=== PATIENT | female | born 1950 | race Caucasian/White ===

== ENCOUNTER 2023-09-10 18:44 | Inpatient (IN) | payer MEDICARE, BC ==
[~2023-09-10] VITALS: Ht 162.6 cm; Wt 39.9 kg
[2023-09-10] MEDS ORDERED: ACETAMINOPHEN 650 MG/SUPP.RECT RC ONE (19:25)
[2023-09-10] MEDS: IV NS 0.9% 1,000 ML BAG IV ONE (19:30)
[2023-09-10] MEDS: ACETAMINOPHEN 650 MG/SUPP.RECT RC ONE (19:31)
[2023-09-10 19:52] LABS: BASOPHILS # (AUTO) 0.1 K/uL (0.0-0.2); BASOPHILS % (AUTO) 0.1 % (0.0-2.0); HEMATOCRIT 36 % (33-45); LYMPHOCYTES # (AUTO) 1.5 K/uL (0.8-4.8); LYMPHOCYTES % (AUTO) 3.3 % (20.0-44.0); MEAN CORPUSCULAR HEMOGLOBIN 27 PG (26.0-33.0); MEAN CORPUSCULAR HGB CONC 31 g/dl (31.0-36.0); MEAN CORPUSCULAR VOLUME 88 fL (82-100); MONOCYTES % (AUTO) 2.1 % (2.0-12.0); NEUTROPHILS # (AUTO) 43.9 K/uL (1.8-8.9); NEUTROPHILS % (AUTO) 94.5 % (43.0-81.0); PLATELET COUNT (AUTO) 692 K/uL (150-450); RED BLOOD CELL COUNT(AUTO) 4.12 MIL/uL (4.0-5.2); RED CELL DISTRIBUTION WIDTH 16.9 % (11.5-15.0)
[2023-09-10 19:55] LABS: WHITE BLOOD COUNT (AUTO) 46.5 K/uL (4.3-11.0)
[2023-09-10 19:57] LABS: INR 1.09 (0.91-1.10); PARTIAL THROMBOPLASTIN TIME 24.1 SEC (24.3-34.3); PROTHROMBIN TIME 11.2 SECS (9.2-11.1)
[2023-09-10 20:00] LABS: ALANINE AMINOTRANSFERASE 14 U/L (12-78); ALBUMIN 2.4 g/dL (3.4-5.0); ALKALINE PHOSPHATASE 107 U/L (46-116); ASPARTATE AMINOTRANSFERASE 12 U/L (15-37); BILIRUBIN,DIRECT 0.1 mg/dL (0.0-0.2); BILIRUBIN,TOTAL 0.3 mg/dL (0.2-1.0); CALCIUM, SERUM 10.1 mg/dL (8.5-10.1); CARBON DIOXIDE 16 mmol/L (21-32); CHLORIDE 115 mmol/L (98-107); CREATININE 2.6 mg/dL (0.6-1.3); GLUCOSE 397 mg/dL (74-106); POTASSIUM 4.5 mmol/L (3.5-5.1); SODIUM SERUM 150 mmol/L (136-145); TOTAL PROTEIN, SERUM 9.2 g/dL (6.4-8.2)
[2023-09-10 20:07] LABS: UREA NITROGEN, BLOOD 102 mg/dL (7-18)
[2023-09-10 20:23] LABS: LACTIC ACID 3.3 mmol/L (0.4-2.0)
[2023-09-10] MEDS ORDERED: PIPERACI/TAZO 3.375GM/D5W 50ML PB IV ONE (21:26)
[2023-09-10] MEDS: PIPERACILLIN /TAZOBACTAM 3.375 G in IV D5W 50 ML IV ONE (21:30)
[2023-09-10 21:51] LABS: BILIRUBIN,URINE Negative (NEGATIVE); BLOOD, URINE Moderate Ery/uL (NEGATIVE); COLOR,URINE YELLOW (YELLOW); KETONES,URINE Negative (NEGATIVE); LEUKOCYTE ESTERASE ,URINE Large (NEGATIVE); NITRITE, URINE Negative (NEGATIVE); PROTEIN,URINE 100 mg/dl (NEGATIVE); UGLUCOSE 250 MG/DL mg/dL (NEGATIVE); UROBILINOGEN,URINE 0.2 EU/dL (0.2)
[2023-09-10 21:52] LABS: APPEARANCE,URINE SLIGHTLY CLOUDY (CLEAR)
[2023-09-10 21:57] LABS: ANISOCYTOSIS 1+; BAND % (MANUAL) 6 % (0.0-5.0); LYMPHOCYTES % (MANUAL) 3 % (16-48); MONOCYTES % (MANUAL) 5 % (0-11.0); NEUTROPHILS % (MANUAL) 86 (42-76); PLATELET ESTIMATE INCREASED
[2023-09-10 21:58] LABS: ROULEAUX 1+
[2023-09-10 22:00] VITALS: BP 151/77; TEMP 98.2; O2SAT 96
[2023-09-10] MEDS ORDERED: MAGNESIUM HYDROXIDE 30 ML UDC PO PRN (22:00)
[2023-09-10] MEDS ORDERED: Z GUARD REMEDY 4 OZ OINT TP PRN (22:00)
[2023-09-10] MEDS ORDERED: MAG HYDROX/AL HYDROX/SIMETH 30 ML UDC PO PRN (22:00)
[2023-09-10] MEDS ORDERED: ZOLPIDEM TARTRATE 5 MG TABLET PO PRN (22:00)
[2023-09-10] MEDS ORDERED: ONDANSETRON HCL/PF 4 MG/2 ML VIAL IVP PRN (22:00)
[2023-09-10 22:08] LABS: ADD URINE CULTURE YES; BACTERIA,URINE 2+ /HPF (None Seen); MUCUS,URINE Moderate /LPF (None Seen); SQUAMOUS EPITHELIAL CELL,UR 0-2 /HPF (None Seen); WBC,URINE 51-80 /HPF (0-3)
[2023-09-10] MEDS: IV 1/2NS 1000 ML 1,000 ML IV PRN (22:27)
[2023-09-10] MEDS ORDERED: DEXTROSE 50%-WATER 50 ML DISP.SYRIN IV PRN (22:30)
[2023-09-10] MEDS ORDERED: METF500S7 PO (22:46)
[2023-09-10] MEDS ORDERED: LEVO50TA8 PO (23:04)
[2023-09-10] MEDS ORDERED: QUET100T PO (23:04)
[2023-09-10] MEDS ORDERED: CA C1TAB71 PO (23:04)
[2023-09-10] MEDS ORDERED: CLON-418 PO (23:04)
[2023-09-10] MEDS ORDERED: TRAZ-182 PO (23:04)
[2023-09-10] MEDS ORDERED: MEMA10TA PO (23:04)
[2023-09-10] MEDS ORDERED: ERGO500093 PO (23:04)
[2023-09-10] MEDS ORDERED: METF-440 PO (23:04)
[2023-09-11] MEDS ORDERED: PIPERACILLIN /TAZOBACTAM 3.375 G in IV D5W 50 ML IV SCH
[2023-09-11] MEDS: PIPERACI/TAZO 3.375GM/D5W 50ML PB IV ONE (05:14)
[2023-09-11] MEDS: PIPERACILLIN /TAZOBACTAM 3.375 G in IV D5W 50 ML IV SCH (05:22)
[2023-09-11] MEDS: BLOOD SUGAR DIAGNOSTIC 1 EACH STRIP IN SCH (06:51)
[2023-09-11] MEDS: INSULIN REGULAR, HUMAN 100 UNIT/ML 3 ML VIAL SQ PRN (06:54)
[2023-09-11 07:43] LABS: ALANINE AMINOTRANSFERASE 9 U/L (12-78); ALBUMIN 1.5 g/dL (3.4-5.0); ALKALINE PHOSPHATASE 96 U/L (46-116); ASPARTATE AMINOTRANSFERASE 11 U/L (15-37); BILIRUBIN,TOTAL 0.2 mg/dL (0.2-1.0); CALCIUM, SERUM 8.6 mg/dL (8.5-10.1); CARBON DIOXIDE 12 mmol/L (21-32); CHLORIDE 121 mmol/L (98-107); CREATININE 2.1 mg/dL (0.6-1.3); MAGNESIUM 2.1 mg/dL (1.8-2.4); POTASSIUM 3.5 mmol/L (3.5-5.1); SODIUM SERUM 153 mmol/L (136-145); TOTAL PROTEIN, SERUM 6.5 g/dL (6.4-8.2)
[2023-09-11 07:45] LABS: BASOPHILS % (AUTO) 0.1 % (0.0-2.0); HEMATOCRIT 26 % (33-45); LYMPHOCYTES # (AUTO) 1.2 K/uL (0.8-4.8); LYMPHOCYTES % (AUTO) 2.8 % (20.0-44.0); MEAN CORPUSCULAR HEMOGLOBIN 28 PG (26.0-33.0); MEAN CORPUSCULAR HGB CONC 31 g/dl (31.0-36.0); MEAN CORPUSCULAR VOLUME 90 fL (82-100); MONOCYTES # (AUTO) 1.1 K/uL (0.1-1.30); MONOCYTES % (AUTO) 2.6 % (2.0-12.0); NEUTROPHILS # (AUTO) 39.5 K/uL (1.8-8.9); NEUTROPHILS % (AUTO) 94.5 % (43.0-81.0); PLATELET COUNT (AUTO) 415 K/uL (150-450); RED BLOOD CELL COUNT(AUTO) 2.93 MIL/uL (4.0-5.2); RED CELL DISTRIBUTION WIDTH 16.8 % (11.5-15.0)
[2023-09-11 07:49] LABS: WHITE BLOOD COUNT (AUTO) 41.7 K/uL (4.3-11.0)
[2023-09-11 08:00] VITALS: BP 138/76; TEMP 99; O2SAT 99
[2023-09-11 08:24] LABS: GLUCOSE 397 mg/dL (74-106)
[2023-09-11 08:32] LABS: UREA NITROGEN, BLOOD 88 mg/dL (7-18)
[2023-09-11] MEDS ORDERED: CHOL100043 PO (10:07)
[2023-09-11 10:43] LABS: ANISOCYTOSIS 1+; BAND % (MANUAL) 2 % (0.0-5.0); BASOPHILS % (MANUAL) 0 % (0.0-2.0); EOSINOPHILS % (MANUAL) 0 % (0-4); LYMPHOCYTES % (MANUAL) 6 % (16-48); MONOCYTES % (MANUAL) 5 % (0-11.0); NEUTROPHILS % (MANUAL) 87 (42-76); PLATELET ESTIMATE ADEQUATE
[2023-09-11] MEDS ORDERED: ERGOCALCIFEROL (VITAMIN D 2) 50,000 UNIT CAPSULE PO SCH (11:00)
[2023-09-11 12:00] VITALS: BP 128/67; TEMP 98.2; O2SAT 98
[2023-09-11] MEDS: ZOSYN IVPB 2.25 G in IV D5W 50ml IV SCH (12:29)
[2023-09-11 16:00] VITALS: BP 129/68; TEMP 99.7; O2SAT 96
[2023-09-11] MEDS ORDERED: CLONIDINE HCL 0.1 MG TABLET PO PRN (16:30)
[2023-09-11] MEDS: MEMANTINE HCL 5 MG TABLET PO SCH (17:00)
[2023-09-11] MEDS: QUETIAPINE FUMARATE 100 MG TABLET PO SCH (17:00)
[2023-09-11] MEDS: IV D5/0.45 NACL 1,000 ML IV PRN (17:25)
[2023-09-11 20:00] VITALS: BP 129/70; TEMP 98.2; O2SAT 96
[2023-09-11] MEDS ORDERED: NA PHOS,M-B/NA PHOS,DI-BA 1 EA ENEMA RC PRN (22:30)
[2023-09-12] VITALS: BP_SYST 114; BP_SYST 127; BP_DIAS 71; BP_DIAS 76; TEMP 97.3; TEMP 98.2; O2SAT 95; O2SAT 97
[2023-09-12] MEDS ORDERED: METRONIDAZOLE 500MG/ NS 100ML 500 MG in PREMIX 1 EA IV SCH
[2023-09-12 01:24] LABS: BILIRUBIN,URINE NEGATIVE (NEGATIVE); BLOOD, URINE 3+ Ery/uL (NEGATIVE); COLOR,URINE YELLOW (YELLOW); KETONES,URINE NEGATIVE (NEGATIVE); LEUKOCYTE ESTERASE ,URINE 2+ (NEGATIVE); NITRITE, URINE NEGATIVE (NEGATIVE); PH,URINE 5.5 (5.0-8.0); PROTEIN,URINE 1+ mg/dl (NEGATIVE); UGLUCOSE 1+ mg/dL (NEGATIVE); UROBILINOGEN,URINE 0.2 EU/dL (0.2)
[2023-09-12 01:25] LABS: CREATININE, URINE 30.9 MG/DL (30.0-125.0); URINE TOTAL PROTEIN 124.1 mg/dL (0-11.9)
[2023-09-12 01:26] LABS: APPEARANCE,URINE HAZY (CLEAR)
[2023-09-12 02:07] LABS: RBC,URINE TOO NUMEROUS TO COUN /HPF (0-2)
[2023-09-12 02:08] LABS: ADD URINE CULTURE YES; BACTERIA,URINE Many /HPF (None Seen); SQUAMOUS EPITHELIAL CELL,UR Few /HPF (None Seen); WBC,URINE TOO NUMEROUS TO COUN /HPF (0-3)
[2023-09-12 05:16] LABS: EOSINOPHIL,URINE Few
[2023-09-12 08:04] LABS: BASOPHILS % (AUTO) 0.1 % (0.0-2.0); HEMATOCRIT 25 % (33-45); HEMOGLOBIN 7.6 g/dL (11.5-14.8); LYMPHOCYTES % (AUTO) 2.6 % (20.0-44.0); MEAN CORPUSCULAR HEMOGLOBIN 27 PG (26.0-33.0); MEAN CORPUSCULAR HGB CONC 31 g/dl (31.0-36.0); MEAN CORPUSCULAR VOLUME 88 fL (82-100); MONOCYTES # (AUTO) 0.8 K/uL (0.1-1.30); MONOCYTES % (AUTO) 2.2 % (2.0-12.0); NEUTROPHILS # (AUTO) 35.5 K/uL (1.8-8.9); NEUTROPHILS % (AUTO) 95.1 % (43.0-81.0); PLATELET COUNT (AUTO) 432 K/uL (150-450); RED BLOOD CELL COUNT(AUTO) 2.79 MIL/uL (4.0-5.2); RED CELL DISTRIBUTION WIDTH 16.7 % (11.5-15.0)
[2023-09-12 08:07] LABS: WHITE BLOOD COUNT (AUTO) 37.4 K/uL (4.3-11.0)
[2023-09-12 08:21] LABS: LACTIC ACID 1.5 mmol/L (0.4-2.0)
[2023-09-12 08:37] LABS: ALANINE AMINOTRANSFERASE 16 U/L (12-78); ALKALINE PHOSPHATASE 97 U/L (46-116); ASPARTATE AMINOTRANSFERASE 10 U/L (15-37); BILIRUBIN,TOTAL 0.3 mg/dL (0.2-1.0); CALCIUM, SERUM 9.2 mg/dL (8.5-10.1); CARBON DIOXIDE 14 mmol/L (21-32); CHLORIDE 123 mmol/L (98-107); CREATININE 1.8 mg/dL (0.6-1.3); GLUCOSE 373 mg/dL (74-106); PHOSPHORUS 3.8 mg/dL (2.5-4.9); SODIUM SERUM 154 mmol/L (136-145); TOTAL PROTEIN, SERUM 6.7 g/dL (6.4-8.2); UREA NITROGEN, BLOOD 79 mg/dL (7-18)
[2023-09-12 08:41] LABS: CREATINE KINASE, TOTAL 89 U/L (26-192)
[2023-09-12 08:44] LABS: ALBUMIN 1.4 g/dL (3.4-5.0); POTASSIUM 2.8 mmol/L (3.5-5.1)
[2023-09-12] MEDS: CHOLECALCIFEROL 1,000 UNIT TABLET (VIT D3) PO SCH (09:00)
[2023-09-12] MEDS: TRAZODONE 50 MG TABLET PO SCH (09:00)
[2023-09-12] MEDS: LEVOTHYROXINE SODIUM 50 MCG TABLET PO SCH (09:00)
[2023-09-12] MEDS ORDERED: POTASSIUM CL. PREMIX PERIPHER. 50 ML IV SCH (10:30)
[2023-09-12] MEDS: POTASSIUM CL. PREMIX PERIPHER. 50 ML IV SCH (10:55)
[2023-09-12] MEDS ORDERED: ANESTHESIA TRAY IN PYXIS 1 EA TRAY MC ONE (11:11)
[2023-09-12 11:30] VITALS: BP 126/95; TEMP 97.9; O2SAT 100
[2023-09-12] MEDS: PANTOPRAZOLE 40 MG VIAL IV SCH (12:42)
[2023-09-12 13:01] LABS: BAND % (MANUAL) 2 % (0.0-5.0); LYMPHOCYTES % (MANUAL) 5 % (16-48); NEUTROPHILS % (MANUAL) 91 (42-76)
[2023-09-12 13:02] LABS: ANISOCYTOSIS 1+; BASOPHILS % (MANUAL) 0 % (0.0-2.0); EOSINOPHILS % (MANUAL) 0 % (0-4); MONOCYTES % (MANUAL) 2 % (0-11.0); PLATELET ESTIMATE ADEQUATE
[2023-09-12] MEDS: THERAHONEY GEL 1.5 OZ TUBE TP SCH (13:44)
[2023-09-12 16:00] VITALS: BP 139/85; TEMP 98.4; O2SAT 96
[2023-09-12 20:00] VITALS: BP 126/89; TEMP 98.2; O2SAT 96
[2023-09-12 21:00] LABS: CALCIUM, SERUM 9.7 mg/dL (8.5-10.1); CARBON DIOXIDE 14 mmol/L (21-32); CREATININE 1.8 mg/dL (0.6-1.3); GLUCOSE 194 mg/dL (74-106); POTASSIUM 3.5 mmol/L (3.5-5.1); UREA NITROGEN, BLOOD 74 mg/dL (7-18)
[2023-09-12 21:04] LABS: IRON, SERUM 15 ug/dl (50-175); TOTAL IRON BINDING CAPACITY 111 ug/dl (250-450)
[2023-09-12 21:23] LABS: CHLORIDE 126 mmol/L (98-107); SODIUM SERUM 156 mmol/L (136-145)
[2023-09-12 22:19] LABS: FERRITIN 2411 ng/mL (8-388)
[2023-09-13] VITALS (7 sets, daily range): BP systolic 107–163; BP diastolic 70–91; TEMP 97.3–98.4; O2SAT 95–100
[2023-09-13] MEDS: SODIUM CL FOR INHALATION 3% 15 ML VIAL.NEB IH ONE (06:11)
[2023-09-13 08:12] LABS: CHLORIDE 121 mmol/L (98-107); POTASSIUM 3.9 mmol/L (3.5-5.1); SODIUM SERUM 152 mmol/L (136-145)
[2023-09-13 08:13] LABS: CARBON DIOXIDE 12 mmol/L (21-32); GLUCOSE 373 mg/dL (74-106); UREA NITROGEN, BLOOD 68 mg/dL (7-18)
[2023-09-13 08:14] LABS: CALCIUM, SERUM 9.3 mg/dL (8.5-10.1); CREATININE 1.7 mg/dL (0.6-1.3)
[2023-09-13] MEDS: IV D5W 1,000 ML IV PRN (09:36)
[2023-09-13 13:10] LABS: *SPE A/G RATIO 0.4 (0.7-1.7); *SPE ALBUMIN 1.7 g/dL (2.9-4.4); *SPE ALPHA-1-GLOBULIN 0.4 g/dL (0.0-0.4); *SPE ALPHA-2-GLOBULIN 1.6 g/dL (0.4-1.0); *SPE BETA GLOBULIN 0.9 g/dL (0.7-1.3); *SPE GLOBULIN, TOTAL 3.9 g/dL (2.2-3.9); *SPE M-SPIKE Not Observed g/dL (Not Observed); *SPE PROTEIN TOTAL 5.6 g/dL (6.0-8.5)
[2023-09-13 15:07] LABS: HBSAG SCREEN Negative (Negative); HEPATITIS A AB, IgM Negative (Negative); HEPATITIS B CORE AB, IgM Negative (Negative)
[2023-09-13] MEDS: IV D5W 500 ML IV ONE (15:37)
[2023-09-13 15:54] LABS: ABG BASE EXCESS -13.5 mmol/L; ABG PCO2 18.2 mmHg (35.0-45.0); ABG PH 7.353 (7.350-7.450); ABG PO2 70.7 mmHg (75.0-100.0); ABG TOTAL HEMOGLOBIN 11.3 G/dL (12.0-16.0); AaDO2 164.9 mmHg; COHb 0.7 % (0.5-1.5); MetHb 0.3 % (0.0-1.5); O2Hb 92.1 % (94.0-97.0); SITE, ABG Right Radial; VENT MODE, BG Nasal Cannula
[2023-09-13 16:59] LABS: BASOPHILS % (AUTO) 0.1 % (0.0-2.0); EOSINOPHILS % (AUTO) 0.1 % (0.0-6.0); HEMATOCRIT 27 % (33-45); HEMOGLOBIN 7.8 g/dL (11.5-14.8); LYMPHOCYTES # (AUTO) 1.8 K/uL (0.8-4.8); LYMPHOCYTES % (AUTO) 4.6 % (20.0-44.0); MEAN CORPUSCULAR HEMOGLOBIN 27 PG (26.0-33.0); MEAN CORPUSCULAR HGB CONC 29 g/dl (31.0-36.0); MEAN CORPUSCULAR VOLUME 93 fL (82-100); MONOCYTES % (AUTO) 2.5 % (2.0-12.0); NEUTROPHILS # (AUTO) 35.4 K/uL (1.8-8.9); NEUTROPHILS % (AUTO) 92.7 % (43.0-81.0); PLATELET COUNT (AUTO) 440 K/uL (150-450); RED BLOOD CELL COUNT(AUTO) 2.88 MIL/uL (4.0-5.2); RED CELL DISTRIBUTION WIDTH 18.5 % (11.5-15.0)
[2023-09-13 17:08] LABS: WHITE BLOOD COUNT (AUTO) 38.1 K/uL (4.3-11.0)
[2023-09-13 17:13] LABS: ANISOCYTOSIS 2+; BAND % (MANUAL) 2 % (0.0-5.0); HYPOCHROMASIA 1+; LYMPHOCYTES % (MANUAL) 3 % (16-48); MONOCYTES % (MANUAL) 1 % (0-11.0); NEUTROPHILS % (MANUAL) 94 (42-76); PLATELET ESTIMATE ADEQUATE
[2023-09-13] MEDS: CITRIC ACID/SODIUM CITRATE (BICITRA)15 ML UDC PO SCH (17:54)
[2023-09-13 18:09] LABS: CALCIUM, SERUM 9.2 mg/dL (8.5-10.1); CARBON DIOXIDE 14 mmol/L (21-32); CHLORIDE 121 mmol/L (98-107); CREATININE 1.7 mg/dL (0.6-1.3); POTASSIUM 3.2 mmol/L (3.5-5.1); SODIUM SERUM 151 mmol/L (136-145); UREA NITROGEN, BLOOD 64 mg/dL (7-18)
[2023-09-13 18:13] LABS: GLUCOSE 409 mg/dL (74-106)
[2023-09-14 02:25] VITALS: O2SAT 97
[2023-09-14 07:00] VITALS: BP 140/90; TEMP 98.2; O2SAT 94
[2023-09-14] MEDS: DOXYCYCLINE 100 MG in IV D5W 100 ML IV SCH (08:53)
[2023-09-14] MEDS: ACETAMINOPHEN 325 MG TABLET PO PRN (08:58)
[2023-09-14 09:18] VITALS: O2SAT 95
[2023-09-14 09:37] LABS: LACTIC ACID 4.4 mmol/L (0.4-2.0)
[2023-09-14 11:03] LABS: CARBON DIOXIDE 13 mmol/L (21-32); CHLORIDE 115 mmol/L (98-107); SODIUM SERUM 147 mmol/L (136-145)
[2023-09-14 11:04] LABS: CALCIUM, SERUM 9.7 mg/dL (8.5-10.1); CREATININE 1.6 mg/dL (0.6-1.3); GLUCOSE 319 mg/dL (74-106); UREA NITROGEN, BLOOD 57 mg/dL (7-18)
[2023-09-14] MEDS: GLUCERNA 1.2 1,000 ML BOTTLE NG PRN (11:09)
[2023-09-14 11:11] LABS: POTASSIUM 2.8 mmol/L (3.5-5.1)
[2023-09-14] MEDS: POTASSIUM CHLORIDE 20 MEQ POWDER PACKET NG ONE (11:32)
[2023-09-14 12:26] LABS: BILIRUBIN,DIRECT 0.1 mg/dL (0.0-0.2); BILIRUBIN,TOTAL 0.3 mg/dL (0.2-1.0)
[2023-09-14 13:00] VITALS: BP 114/70; TEMP 97.8; O2SAT 94
[2023-09-14 16:00] VITALS: BP 103/63; TEMP 97.9; O2SAT 94
[2023-09-14 16:31] LABS: CALCIUM, SERUM 8.9 mg/dL (8.5-10.1); CHLORIDE 116 mmol/L (98-107); CREATININE 1.7 mg/dL (0.6-1.3); GLUCOSE 290 mg/dL (74-106); POTASSIUM 3.2 mmol/L (3.5-5.1); SODIUM SERUM 146 mmol/L (136-145); UREA NITROGEN, BLOOD 54 mg/dL (7-18)
[2023-09-14 16:55] LABS: CARBON DIOXIDE 9 mmol/L (21-32)
[2023-09-14] MEDS: IV D5W 1,000 ML IV PRN (18:35)
[2023-09-14 19:19] LABS: ABG OXYGEN SATURATION 93.1 % (92.0-98.5); ABG PCO2 17.9 mmHg (35.0-45.0); ABG PH 7.425 (7.350-7.450); ABG PO2 68.4 mmHg (75.0-100.0); ABG TOTAL HEMOGLOBIN 10.1 G/dL (12.0-16.0); AaDO2 167.5 mmHg; COHb 0.2 % (0.5-1.5); MetHb 0.3 % (0.0-1.5); O2Hb 92.6 % (94.0-97.0); SITE, ABG Left Radial; VENT MODE, BG Nasal Cannula
[2023-09-14] MEDS: POTASSIUM CL. PREMIX PERIPHER. 50 ML IV SCH (19:54)
[2023-09-14 20:00] VITALS: BP 139/94; TEMP 98.2; O2SAT 94
[2023-09-14] MEDS: CITRIC ACID/SODIUM CITRATE (BICITRA)15 ML UDC PO SCH (20:17)
[2023-09-14] MEDS: PANTOPRAZOLE 40 MG/PACK PACK NG SCH (21:24)
[2023-09-14 21:38] LABS: BASOPHILS # (AUTO) 0.1 K/uL (0.0-0.2); BASOPHILS % (AUTO) 0.1 % (0.0-2.0); EOSINOPHILS # (AUTO) 0.1 K/uL (0.0-0.7); EOSINOPHILS % (AUTO) 0.1 % (0.0-6.0); HEMATOCRIT 27 % (33-45); HEMOGLOBIN 8.1 g/dL (11.5-14.8); LYMPHOCYTES % (AUTO) 4.3 % (20.0-44.0); MEAN CORPUSCULAR HEMOGLOBIN 27 PG (26.0-33.0); MEAN CORPUSCULAR HGB CONC 30 g/dl (31.0-36.0); MEAN CORPUSCULAR VOLUME 91 fL (82-100); MONOCYTES # (AUTO) 0.6 K/uL (0.1-1.30); MONOCYTES % (AUTO) 1.4 % (2.0-12.0); NEUTROPHILS # (AUTO) 43.1 K/uL (1.8-8.9); NEUTROPHILS % (AUTO) 94.1 % (43.0-81.0); PLATELET COUNT (AUTO) 468 K/uL (150-450); RED BLOOD CELL COUNT(AUTO) 3.01 MIL/uL (4.0-5.2)
[2023-09-14 21:43] LABS: WHITE BLOOD COUNT (AUTO) 45.8 K/uL (4.3-11.0)
[2023-09-14 22:08] LABS: ANISOCYTOSIS 1+; BAND % (MANUAL) 1 % (0.0-5.0); LYMPHOCYTES % (MANUAL) 5 % (16-48); MONOCYTES % (MANUAL) 3 % (0-11.0); NEUTROPHILS % (MANUAL) 91 (42-76); PLATELET ESTIMATE INCREASED
[2023-09-15] VITALS (11 sets, daily range): BP systolic 96–142; BP diastolic 56–87; TEMP 97.6–99.1; O2SAT 93–100
[2023-09-15 08:20] LABS: EOSINOPHILS # (AUTO) 0.1 K/uL (0.0-0.7); EOSINOPHILS % (AUTO) 0.3 % (0.0-6.0); HEMATOCRIT 22 % (33-45); LYMPHOCYTES # (AUTO) 1.4 K/uL (0.8-4.8); LYMPHOCYTES % (AUTO) 3.8 % (20.0-44.0); MEAN CORPUSCULAR HEMOGLOBIN 28 PG (26.0-33.0); MEAN CORPUSCULAR HGB CONC 31 g/dl (31.0-36.0); MEAN CORPUSCULAR VOLUME 89 fL (82-100); MONOCYTES # (AUTO) 0.8 K/uL (0.1-1.30); NEUTROPHILS # (AUTO) 35.8 K/uL (1.8-8.9); NEUTROPHILS % (AUTO) 93.9 % (43.0-81.0); PLATELET COUNT (AUTO) 357 K/uL (150-450); RED BLOOD CELL COUNT(AUTO) 2.44 MIL/uL (4.0-5.2); RED CELL DISTRIBUTION WIDTH 17.7 % (11.5-15.0)
[2023-09-15 08:24] LABS: HEMOGLOBIN 6.8 g/dL (11.5-14.8); WHITE BLOOD COUNT (AUTO) 38.1 K/uL (4.3-11.0)
[2023-09-15 08:57] LABS: BAND % (MANUAL) 2 % (0.0-5.0); BASOPHILS % (MANUAL) 0 % (0.0-2.0); EOSINOPHILS % (MANUAL) 0 % (0-4); LYMPHOCYTES % (MANUAL) 7 % (16-48); MONOCYTES % (MANUAL) 4 % (0-11.0); NEUTROPHILS % (MANUAL) 87 (42-76)
[2023-09-15 08:58] LABS: ANISOCYTOSIS 1+; HYPOCHROMASIA 1+; PLATELET ESTIMATE ADEQUATE
[2023-09-15] MEDS: ZINC SULFATE 220 MG CAPSULE NG SCH (09:34)
[2023-09-15] MEDS: MULTIVITAMINS,THERAGRAN 1 UDTAB TABLET NG SCH (09:35)
[2023-09-15] MEDS: ASCORBIC ACID 500 MG TABLET NG SCH (09:35)
[2023-09-15 10:00] LABS: CALCIUM, SERUM 8.6 mg/dL (8.5-10.1); CARBON DIOXIDE 15 mmol/L (21-32); CHLORIDE 111 mmol/L (98-107); CREATININE 1.7 mg/dL (0.6-1.3); GLUCOSE 360 mg/dL (74-106); POTASSIUM 3.5 mmol/L (3.5-5.1); SODIUM SERUM 145 mmol/L (136-145); UREA NITROGEN, BLOOD 54 mg/dL (7-18)
[2023-09-16] VITALS (8 sets, daily range): BP systolic 118–146; BP diastolic 64–102; TEMP 97.5–98.6; O2SAT 28–98
[2023-09-16 08:59] LABS: EOSINOPHILS # (AUTO) 0.1 K/uL (0.0-0.7); EOSINOPHILS % (AUTO) 0.2 % (0.0-6.0); HEMATOCRIT 28 % (33-45); HEMOGLOBIN 9.1 g/dL (11.5-14.8); LYMPHOCYTES # (AUTO) 1.1 K/uL (0.8-4.8); LYMPHOCYTES % (AUTO) 3.2 % (20.0-44.0); MEAN CORPUSCULAR HEMOGLOBIN 28 PG (26.0-33.0); MEAN CORPUSCULAR HGB CONC 33 g/dl (31.0-36.0); MEAN CORPUSCULAR VOLUME 84 fL (82-100); MONOCYTES # (AUTO) 0.5 K/uL (0.1-1.30); MONOCYTES % (AUTO) 1.4 % (2.0-12.0); NEUTROPHILS # (AUTO) 32.3 K/uL (1.8-8.9); NEUTROPHILS % (AUTO) 95.2 % (43.0-81.0); PLATELET COUNT (AUTO) 337 K/uL (150-450); RED CELL DISTRIBUTION WIDTH 15.7 % (11.5-15.0)
[2023-09-16 09:06] LABS: WHITE BLOOD COUNT (AUTO) 33.9 K/uL (4.3-11.0)
[2023-09-16 09:07] LABS: ALANINE AMINOTRANSFERASE 14 U/L (12-78); ALKALINE PHOSPHATASE 110 U/L (46-116); ASPARTATE AMINOTRANSFERASE 16 U/L (15-37); BILIRUBIN,TOTAL 0.5 mg/dL (0.2-1.0); CALCIUM, SERUM 8.4 mg/dL (8.5-10.1); CARBON DIOXIDE 18 mmol/L (21-32); CHLORIDE 113 mmol/L (98-107); CREATININE 1.5 mg/dL (0.6-1.3); GLUCOSE 278 mg/dL (74-106); SODIUM SERUM 148 mmol/L (136-145); UREA NITROGEN, BLOOD 49 mg/dL (7-18)
[2023-09-16 11:05] LABS: POTASSIUM 2.5 mmol/L (3.5-5.1)
[2023-09-16 11:20] LABS: ANISOCYTOSIS 1+; BAND % (MANUAL) 3 % (0.0-5.0); BASOPHILS % (MANUAL) 0 % (0.0-2.0); EOSINOPHILS % (MANUAL) 0 % (0-4); HYPOCHROMASIA 1+; LYMPHOCYTES % (MANUAL) 6 % (16-48); MONOCYTES % (MANUAL) 3 % (0-11.0); NEUTROPHILS % (MANUAL) 88 (42-76); OVALOCYTES 1+; PLATELET ESTIMATE ADEQUATE
[2023-09-16 12:20] LABS: CALCIUM, SERUM 8.4 mg/dL (8.5-10.1); CARBON DIOXIDE 19 mmol/L (21-32); CHLORIDE 111 mmol/L (98-107); CREATININE 1.5 mg/dL (0.6-1.3); GLUCOSE 372 mg/dL (74-106); SODIUM SERUM 146 mmol/L (136-145); UREA NITROGEN, BLOOD 50 mg/dL (7-18)
[2023-09-16 12:23] LABS: POTASSIUM 2.5 mmol/L (3.5-5.1)
[2023-09-16] MEDS: POTASSIUM CHLORIDE 20 MEQ POWDER PACKET GT ONE (14:25)
[2023-09-16] MEDS: POTASSIUM CL. PREMIX PERIPHER. 50 ML IV ONE (14:26)
[2023-09-16 19:34] LABS: CALCIUM, SERUM 8.3 mg/dL (8.5-10.1); CARBON DIOXIDE 19 mmol/L (21-32); CHLORIDE 114 mmol/L (98-107); CREATININE 1.6 mg/dL (0.6-1.3); GLUCOSE 276 mg/dL (74-106); POTASSIUM 3.3 mmol/L (3.5-5.1); SODIUM SERUM 148 mmol/L (136-145); UREA NITROGEN, BLOOD 49 mg/dL (7-18)
[2023-09-17] VITALS (10 sets, daily range): BP systolic 122–149; BP diastolic 23–92; TEMP 97.5–99.3; O2SAT 96–98
[2023-09-17 08:42] LABS: ALANINE AMINOTRANSFERASE 15 U/L (12-78); ALKALINE PHOSPHATASE 104 U/L (46-116); ASPARTATE AMINOTRANSFERASE 14 U/L (15-37); BILIRUBIN,TOTAL 0.5 mg/dL (0.2-1.0); CALCIUM, SERUM 8.5 mg/dL (8.5-10.1); CARBON DIOXIDE 21 mmol/L (21-32); CHLORIDE 109 mmol/L (98-107); CREATININE 1.3 mg/dL (0.6-1.3); GLUCOSE 215 mg/dL (74-106); POTASSIUM 3.2 mmol/L (3.5-5.1); SODIUM SERUM 144 mmol/L (136-145); TOTAL PROTEIN, SERUM 6.3 g/dL (6.4-8.2); UREA NITROGEN, BLOOD 47 mg/dL (7-18)
[2023-09-17] MEDS ORDERED: POTASSIUM CHLORIDE 20 MEQ POWDER PACKET NG SCH (10:00)
[2023-09-17] MEDS: POTASSIUM CL. PREMIX PERIPHER. 50 ML IV SCH (11:15)
[2023-09-17] MEDS ORDERED: POLYMYXIN B SULFATE 500,000 UNITS ONE (16:55)
[2023-09-17] MEDS ORDERED: protAMINE SULFATE 10 MG/ML VIAL IV ONE (17:07)
[2023-09-17] MEDS ORDERED: HEMOSTATIC MATRIX 8 ML 1 EACH PAD MC ONE (17:11)
[2023-09-17] MEDS ORDERED: CELLULOSE,OXIDIZED 1 EACH EACH MC ONE (17:12)
[2023-09-17 17:24] LABS: HEMOGLOBIN 9.1 g/dL (11.5-14.8)
[2023-09-17] MEDS: ENOXAPARIN SODIUM 40 MG/0.4 ML DISP.SYRIN SQ SCH (23:59)
[2023-09-18] VITALS (7 sets, daily range): BP systolic 140–160; BP diastolic 35–100; TEMP 97.7–99.4; O2SAT 95–98
[2023-09-18 07:34] LABS: BASOPHILS % (AUTO) 0.1 % (0.0-2.0); EOSINOPHILS # (AUTO) 0.1 K/uL (0.0-0.7); EOSINOPHILS % (AUTO) 0.2 % (0.0-6.0); HEMATOCRIT 41 % (33-45); LYMPHOCYTES # (AUTO) 1.1 K/uL (0.8-4.8); LYMPHOCYTES % (AUTO) 4.7 % (20.0-44.0); MEAN CORPUSCULAR HEMOGLOBIN 27 PG (26.0-33.0); MEAN CORPUSCULAR HGB CONC 31 g/dl (31.0-36.0); MEAN CORPUSCULAR VOLUME 87 fL (82-100); MONOCYTES # (AUTO) 0.5 K/uL (0.1-1.30); MONOCYTES % (AUTO) 2.1 % (2.0-12.0); NEUTROPHILS # (AUTO) 22.2 K/uL (1.8-8.9); NEUTROPHILS % (AUTO) 92.9 % (43.0-81.0); PLATELET COUNT (AUTO) 309 K/uL (150-450); RED BLOOD CELL COUNT(AUTO) 4.79 MIL/uL (4.0-5.2); RED CELL DISTRIBUTION WIDTH 17.4 % (11.5-15.0); WHITE BLOOD COUNT (AUTO) 23.9 K/uL (4.3-11.0)
[2023-09-18 07:43] LABS: INR 1.1 (0.91-1.10); PROTHROMBIN TIME 11.6 SECS (9.2-11.1)
[2023-09-18 09:51] LABS: LYMPHOCYTES % (MANUAL) 3 % (16-48); MONOCYTES % (MANUAL) 2 % (0-11.0); NEUTROPHILS % (MANUAL) 95 (42-76)
[2023-09-18 09:52] LABS: PLATELET ESTIMATE ADEQUATE
[2023-09-18 09:53] LABS: ANISOCYTOSIS 1+; OVALOCYTES 1+
[2023-09-18] MEDS ORDERED: MAG HYDROX/AL HYDROX/SIMETH 30 ML UDC NG PRN (15:45)
[2023-09-18] MEDS ORDERED: CLONIDINE HCL 0.1 MG TABLET NG PRN (15:46)
[2023-09-18] MEDS ORDERED: ACETAMINOPHEN 650 MG/20.3 ML UDC NG PRN (16:00)
[2023-09-18] MEDS: MEMANTINE HCL 5 MG TABLET NG SCH (17:46)
[2023-09-18] MEDS: CITRIC ACID/SODIUM CITRATE (BICITRA)15 ML UDC NG SCH (17:46)
[2023-09-19 07:30] VITALS: BP 144/77; TEMP 98.1; O2SAT 97
[2023-09-19] MEDS: LEVOTHYROXINE SODIUM 50 MCG TABLET NG SCH (08:34)
[2023-09-19 09:14] LABS: BASOPHILS % (AUTO) 0.1 % (0.0-2.0); EOSINOPHILS # (AUTO) 0.1 K/uL (0.0-0.7); EOSINOPHILS % (AUTO) 0.3 % (0.0-6.0); HEMATOCRIT 34 % (33-45); HEMOGLOBIN 11.1 g/dL (11.5-14.8); LYMPHOCYTES # (AUTO) 1.3 K/uL (0.8-4.8); LYMPHOCYTES % (AUTO) 5.1 % (20.0-44.0); MEAN CORPUSCULAR HEMOGLOBIN 27 PG (26.0-33.0); MEAN CORPUSCULAR HGB CONC 33 g/dl (31.0-36.0); MEAN CORPUSCULAR VOLUME 82 fL (82-100); MONOCYTES # (AUTO) 0.4 K/uL (0.1-1.30); MONOCYTES % (AUTO) 1.7 % (2.0-12.0); NEUTROPHILS # (AUTO) 22.9 K/uL (1.8-8.9); NEUTROPHILS % (AUTO) 92.8 % (43.0-81.0); PLATELET COUNT (AUTO) 309 K/uL (150-450); RED BLOOD CELL COUNT(AUTO) 4.15 MIL/uL (4.0-5.2); RED CELL DISTRIBUTION WIDTH 16.4 % (11.5-15.0); WHITE BLOOD COUNT (AUTO) 24.7 K/uL (4.3-11.0)
[2023-09-19 09:23] LABS: CALCIUM, SERUM 8.2 mg/dL (8.5-10.1); CHLORIDE 105 mmol/L (98-107); CREATININE 1.3 mg/dL (0.6-1.3); GLUCOSE 313 mg/dL (74-106); UREA NITROGEN, BLOOD 42 mg/dL (7-18)
[2023-09-19 10:23] LABS: CARBON DIOXIDE 22 mmol/L (21-32)
[2023-09-19] MEDS: POTASSIUM CHLORIDE 20 MEQ POWDER PACKET GT ONE ×2 (11:02→15:45)
[2023-09-19 16:47] VITALS: BP 118/67; TEMP 98.6; O2SAT 94
[2023-09-19 17:20] VITALS: O2SAT 91
[2023-09-19 22:38] VITALS: BP 166/77; TEMP 98.2; O2SAT 97
[2023-09-20 07:08] LABS: BASOPHILS % (AUTO) 0.1 % (0.0-2.0); EOSINOPHILS % (AUTO) 0.1 % (0.0-6.0); HEMATOCRIT 32 % (33-45); HEMOGLOBIN 10.7 g/dL (11.5-14.8); LYMPHOCYTES % (AUTO) 4.6 % (20.0-44.0); MEAN CORPUSCULAR HEMOGLOBIN 27 PG (26.0-33.0); MEAN CORPUSCULAR HGB CONC 33 g/dl (31.0-36.0); MEAN CORPUSCULAR VOLUME 81 fL (82-100); MONOCYTES # (AUTO) 0.6 K/uL (0.1-1.30); MONOCYTES % (AUTO) 2.7 % (2.0-12.0); NEUTROPHILS # (AUTO) 20.1 K/uL (1.8-8.9); NEUTROPHILS % (AUTO) 92.5 % (43.0-81.0); PLATELET COUNT (AUTO) 282 K/uL (150-450); RED BLOOD CELL COUNT(AUTO) 3.97 MIL/uL (4.0-5.2); WHITE BLOOD COUNT (AUTO) 21.7 K/uL (4.3-11.0)
[2023-09-20 07:30] VITALS: BP 167/77; TEMP 97.7; O2SAT 98
[2023-09-20 07:59] LABS: CALCIUM, SERUM 7.9 mg/dL (8.5-10.1); CARBON DIOXIDE 23 mmol/L (21-32); CHLORIDE 107 mmol/L (98-107); CREATININE 1.1 mg/dL (0.6-1.3); GLUCOSE 317 mg/dL (74-106); SODIUM SERUM 143 mmol/L (136-145); UREA NITROGEN, BLOOD 43 mg/dL (7-18)
[2023-09-20 09:14] LABS: POTASSIUM 2.8 mmol/L (3.5-5.1); SODIUM SERUM 143 mmol/L (136-145)
[2023-09-20 09:19] LABS: POTASSIUM 2.8 mmol/L (3.5-5.1)
[2023-09-20] MEDS: POTASSIUM CHLORIDE 20 MEQ POWDER PACKET GT ONE ×2 (10:04→13:07)
[2023-09-20 13:35] VITALS: O2SAT 98
[2023-09-20 16:26] VITALS: BP 139/85; TEMP 98.4; O2SAT 94
[2023-09-20 20:00] VITALS: BP 123/68; TEMP 98.4; O2SAT 95
[2023-09-21 05:28] VITALS: O2SAT 98
[2023-09-21 06:33] LABS: BASOPHILS % (AUTO) 0.2 % (0.0-2.0); EOSINOPHILS # (AUTO) 0.1 K/uL (0.0-0.7); EOSINOPHILS % (AUTO) 0.3 % (0.0-6.0); HEMATOCRIT 31 % (33-45); HEMOGLOBIN 10.5 g/dL (11.5-14.8); LYMPHOCYTES # (AUTO) 1.2 K/uL (0.8-4.8); MEAN CORPUSCULAR HEMOGLOBIN 27 PG (26.0-33.0); MEAN CORPUSCULAR HGB CONC 34 g/dl (31.0-36.0); MEAN CORPUSCULAR VOLUME 81 fL (82-100); MONOCYTES # (AUTO) 0.4 K/uL (0.1-1.30); MONOCYTES % (AUTO) 2.5 % (2.0-12.0); NEUTROPHILS # (AUTO) 15.8 K/uL (1.8-8.9); PLATELET COUNT (AUTO) 292 K/uL (150-450); RED BLOOD CELL COUNT(AUTO) 3.84 MIL/uL (4.0-5.2); RED CELL DISTRIBUTION WIDTH 16.1 % (11.5-15.0); WHITE BLOOD COUNT (AUTO) 17.6 K/uL (4.3-11.0)
[2023-09-21 07:00] LABS: CALCIUM, SERUM 7.1 mg/dL (8.5-10.1); CREATININE 1.1 mg/dL (0.6-1.3); POTASSIUM 3.6 mmol/L (3.5-5.1)
[2023-09-21 07:30] VITALS: BP 150/81; TEMP 98.6; O2SAT 96
[2023-09-21 16:00] VITALS: BP 134/74; TEMP 98.2; O2SAT 96
[2023-09-21 20:00] VITALS: BP 128/62; TEMP 98.4; O2SAT 94; O2SAT 95
[2023-09-22 06:25] VITALS: O2SAT 97
[2023-09-22 08:00] VITALS: BP 137/88; TEMP 97.9; O2SAT 98
[2023-09-22 16:00] VITALS: BP 140/86; TEMP 98; O2SAT 97
[2023-09-22 20:00] VITALS: BP 119/53; TEMP 97.7; O2SAT 93; O2SAT 96
[2023-09-23 06:10] VITALS: O2SAT 100
[2023-09-23 07:00] VITALS: BP 138/78; TEMP 97.9; O2SAT 98
[2023-09-23 08:18] LABS: BASOPHILS # (AUTO) 0.1 K/uL (0.0-0.2); BASOPHILS % (AUTO) 0.4 % (0.0-2.0); EOSINOPHILS % (AUTO) 0.3 % (0.0-6.0); HEMATOCRIT 35 % (33-45); LYMPHOCYTES # (AUTO) 1.5 K/uL (0.8-4.8); LYMPHOCYTES % (AUTO) 10.7 % (20.0-44.0); MEAN CORPUSCULAR HEMOGLOBIN 27 PG (26.0-33.0); MEAN CORPUSCULAR HGB CONC 32 g/dl (31.0-36.0); MEAN CORPUSCULAR VOLUME 85 fL (82-100); MONOCYTES # (AUTO) 0.6 K/uL (0.1-1.30); NEUTROPHILS % (AUTO) 84.6 % (43.0-81.0); PLATELET COUNT (AUTO) 313 K/uL (150-450); RED BLOOD CELL COUNT(AUTO) 4.12 MIL/uL (4.0-5.2); RED CELL DISTRIBUTION WIDTH 16.4 % (11.5-15.0); WHITE BLOOD COUNT (AUTO) 14.2 K/uL (4.3-11.0)
[2023-09-23 08:41] LABS: CALCIUM, SERUM 7.1 mg/dL (8.5-10.1); CREATININE 1.1 mg/dL (0.6-1.3); POTASSIUM 2.9 mmol/L (3.5-5.1)
[2023-09-23] MEDS: POTASSIUM CHLORIDE 20 MEQ POWDER PACKET GT ONE (11:00)
[2023-09-23 16:00] VITALS: BP 130/103; TEMP 97.7; O2SAT 98
[2023-09-23 20:00] VITALS: BP 122/78; TEMP 97.9; O2SAT 98
[2023-09-24 06:07] VITALS: O2SAT 95
[2023-09-24 06:56] LABS: BASOPHILS % (AUTO) 0.3 % (0.0-2.0); EOSINOPHILS # (AUTO) 0.1 K/uL (0.0-0.7); EOSINOPHILS % (AUTO) 0.7 % (0.0-6.0); HEMATOCRIT 37 % (33-45); HEMOGLOBIN 11.8 g/dL (11.5-14.8); LYMPHOCYTES # (AUTO) 1.7 K/uL (0.8-4.8); LYMPHOCYTES % (AUTO) 12.1 % (20.0-44.0); MEAN CORPUSCULAR HEMOGLOBIN 27 PG (26.0-33.0); MEAN CORPUSCULAR HGB CONC 32 g/dl (31.0-36.0); MEAN CORPUSCULAR VOLUME 85 fL (82-100); MONOCYTES # (AUTO) 0.7 K/uL (0.1-1.30); MONOCYTES % (AUTO) 4.8 % (2.0-12.0); NEUTROPHILS # (AUTO) 11.7 K/uL (1.8-8.9); NEUTROPHILS % (AUTO) 82.1 % (43.0-81.0); PLATELET COUNT (AUTO) 349 K/uL (150-450); RED BLOOD CELL COUNT(AUTO) 4.32 MIL/uL (4.0-5.2); RED CELL DISTRIBUTION WIDTH 16.5 % (11.5-15.0); WHITE BLOOD COUNT (AUTO) 14.3 K/uL (4.3-11.0)
[2023-09-24 07:23] LABS: CALCIUM, SERUM 8.1 mg/dL (8.5-10.1); CREATININE 0.9 mg/dL (0.6-1.3); POTASSIUM 3.8 mmol/L (3.5-5.1)
[2023-09-24 08:00] VITALS: BP 157/77; TEMP 98.7; O2SAT 99
[2023-09-24 16:00] VITALS: BP 138/75; TEMP 97.5; O2SAT 96
[2023-09-24 16:36] VITALS: O2SAT 99
[2023-09-24 20:00] VITALS: BP 154/89; TEMP 98.2; O2SAT 97
[2023-09-25 04:28] VITALS: O2SAT 97
[2023-09-25 08:00] VITALS: BP 134/78; TEMP 99.3; O2SAT 97
[2023-09-25 16:00] VITALS: BP 107/76; TEMP 97.5; O2SAT 98
[2023-09-25 20:00] VITALS: BP 148/96; TEMP 97.7; O2SAT 98
[2023-09-25 20:28] VITALS: BP 148/96; TEMP 97.7; O2SAT 98
[2023-09-26 05:45] VITALS: O2SAT 97
[2023-09-26 08:08] VITALS: BP 122/80; TEMP 97.7; O2SAT 100
[2023-09-26 08:46] VITALS: O2SAT 97
[2023-09-26 16:00] VITALS: BP 87/50; TEMP 97.9; O2SAT 99
[2023-09-26 20:00] VITALS: BP 152/82; TEMP 98.2; O2SAT 98
[2023-09-26 23:44] VITALS: BP 152/82; TEMP 98.2; O2SAT 98
[2023-09-27 05:17] VITALS: O2SAT 99
[2023-09-27 08:14] VITALS: O2SAT 98
[2023-09-27 10:39] VITALS: BP 112/72; TEMP 98.1; O2SAT 98
== END 2023-09-27 16:45 | disposition home health service (06) | DRG 871 ==
LOC: ER 19:06 → TELE 21:30 → MED 09-15 10:39
PROVIDERS: ADMIT Nurse Practitioner Acute Care; ATTEND Nurse Practitioner Family
PROC: 30233N1 Transfusion of Nonautologous Red Blood Cells into Peripheral Vein, Percutaneous Approach (ICD-10-PCS; 2023-09-15)
PROC: 0DH63UZ Insertion of Feeding Device into Stomach, Percutaneous Approach (ICD-10-PCS; principal; 2023-09-17)
DX: A41.9 Sepsis, unspecified organism (principal); E43 Unspecified severe protein-calorie malnutrition; N17.0 Acute kidney failure with tubular necrosis; J15.9 Unspecified bacterial pneumonia; J69.0 Pneumonitis due to inhalation of food and vomit; G92.8 Other toxic encephalopathy; J96.91 Respiratory failure, unspecified with hypoxia; E87.0 Hyperosmolality and hypernatremia; E87.20 Acidosis, unspecified; N39.0 Urinary tract infection, site not specified; I82.612 Acute embolism and thrombosis of superficial veins of left upper extremity; D68.69 Other thrombophilia; Z68.1 Body mass index [BMI] 19.9 or less, adult; E86.0 Dehydration; B96.20 Unspecified Escherichia coli [E. coli] as the cause of diseases classified elsewhere; D64.9 Anemia, unspecified; E03.9 Hypothyroidism, unspecified; E11.22 Type 2 diabetes mellitus with diabetic chronic kidney disease; E86.1 Hypovolemia; E87.6 Hypokalemia; N18.9 Chronic kidney disease, unspecified; R62.7 Adult failure to thrive; R13.10 Dysphagia, unspecified; R65.20 Severe sepsis without septic shock; Z79.84 Long term (current) use of oral hypoglycemic drugs; E88.09 Other disorders of plasma-protein metabolism, not elsewhere classified; Z74.01 Bed confinement status; L89.621 Pressure ulcer of left heel, stage 1; L89.611 Pressure ulcer of right heel, stage 1; E11.621 Type 2 diabetes mellitus with foot ulcer; L97.522 Non-pressure chronic ulcer of other part of left foot with fat layer exposed; G30.9 Alzheimer's disease, unspecified; F02.80 Dementia in other diseases classified elsewhere, unspecified severity, without behavioral disturbance, psychotic disturbance, mood disturbance, and anxiety; K29.70 Gastritis, unspecified, without bleeding; E11.51 Type 2 diabetes mellitus with diabetic peripheral angiopathy without gangrene; L89.229 Pressure ulcer of left hip, unspecified stage; L89.219 Pressure ulcer of right hip, unspecified stage; L89.159 Pressure ulcer of sacral region, unspecified stage; I12.9 Hypertensive chronic kidney disease with stage 1 through stage 4 chronic kidney disease, or unspecified chronic kidney disease
CPT/HCPCS: 31720; 36415; 36600; 43246; 70450-TC; 71045-TC; 76770-TC; 80048-TC; 80053-TC; 80076-TC; 81001; 82247-TC; 82248-TC; 82550-TC; 82570-TC; 82607-TC; 82728-TC; 82803-TC; 82962-TC; 83540-TC; 83605-TC; 83735-TC; 83880; 83970; 84100-TC; 84155; 84165; 84300-TC; 84484-TC; 85025-TC; 85027-TC; 85045-TC; 85610-TC; 85730-TC; 86850-TC; 87040-TC; 87081-TC; 87086-TC; 92526; 92611-TC; 93971-TC; 94640-TC; 94760-TC; 94761-TC; 94762-TC; 94799-TC; A4218; A4223; A6253; C9113; G0378; J1650; J1815; J2543; J2704; J2720; J3480; J3490; J7030; J7040; J7050; J7060; J7070; P9016